=== PATIENT | female | born 1975 | race Caucasian/White ===

== ENCOUNTER → 2017-07-01 | Outpatient (CLI) | payer OTHER | LOC: FIMAGING 11:37 | PROVIDERS: ATTEND Obstetrics & Gynecology | DX: O09.522 Supervision of elderly multigravida, second trimester (principal); Z87.59 Personal history of other complications of pregnancy, childbirth and the puerperium; Z3A.20 20 weeks gestation of pregnancy ==

== ENCOUNTER 2017-11-06 06:00 | Inpatient (IN) | payer OTHER ==
[2017-11-09] MEDS ORDERED: OXYTOCIN/RINGERS LACTATE 1,000 ML IV PRN (06:47)
[2017-11-09] MEDS ORDERED: OLIVE OIL 118 ML BTL MISC PRN (06:47)
[2017-11-09] MEDS ORDERED: TERBUTALINE SULFATE 1 MG/ML VIAL IV PRN (06:47)
[2017-11-09] MEDS ORDERED: MISOPROSTOL 200 MCG TAB PR PRN (06:47)
[2017-11-09] MEDS ORDERED: LIDOCAINE 1% 300 MG/30 ML SDV SC PRN (06:47)
[2017-11-09] MEDS ORDERED: IBUPROFEN 600 MG TAB PO PRN (06:47)
[2017-11-09] MEDS ORDERED: AMPICILLIN SODIUM 2 GM in NS 100 ML IV ONE (06:47)
[2017-11-09] MEDS ORDERED: EPSOM SALT 454 GM TP PRN (06:47)
[2017-11-09 07:18] LABS: PLATELET COUNT 160 10^3/uL (150-400)
[2017-11-09] MEDS: LR 1,000 ML IV PRN ×2 (08:06→13:43)
[2017-11-09] MEDS ORDERED: OLIVE OIL 118 ML BTL ONE (08:17)
[2017-11-09] MEDS ORDERED: LIDOCAINE 1% 300 MG/30 ML SDV ONE (08:17)
[2017-11-09] MEDS ORDERED: MISOPROSTOL 200 MCG TAB ONE (08:18)
[2017-11-09] MEDS ORDERED: AMMONIA AROMATIC 1 EACH AMP IH ONE (08:18)
[2017-11-09] MEDS ORDERED: TERBUTALINE SULFATE 1 MG/ML VIAL ONE (08:18)
[2017-11-09] MEDS ORDERED: OXYTOCIN 10 UNIT/ML VIAL ONE (08:18)
--- NOTE | 2017-11-09 08:58 | PDGENHP ---
History and Physical History and Physical: CARE: [facility] HPI: Patient is a 42 yo G 4 P 2 at 39.4 weeks ega who presents to L&D with complaints of leaking clear fluid since 0330. She started having irregular contractions at 0430. Baby has been active. Denies vaginal bleeding. Continues to leak clear fluid. She was scheduled for IOL this am at 0600. EDC: 11/12/2017 which is based on LMP: 02/05/17 which is known and consistent with Ultrasound at 9 weeks. Her is complicated by: AMA h/o anxiety/depression Anemia GBS pos Review of Systems: Constitutional: Denies any fever, chills, or fatigue HEENT: denies any visual changes, difficulty swallowing, hearing loss Cardiovascular: Denies any chest pain, palpitations, leg swelling Respiratory: denies any cough, wheezing, or shortness of breathe GI: Denies any nausea, vomiting, diarrhea, constipation : denies any dysuria, urgency, frequency, vaginal bleeding Musculoskeletal: denies any muscle or bone pain Skin: denies any rashes Neuro: denies any headache, seizures, lightheadedness, dizziness, or loss of consciousness Psychiatric: denies any current depression, anxiety, or SI/HI thoughts HISTORY: Previous OB history: 2008 at 38 wks ega - IUGR, GDM; 2011 at 39 weeks ega Past medical history: anxiety/depression -not treated Past surgical history: wisdom teeth age 19 Medications: PNV, iron Allergies: NKDA LABS: Rh: A pos ABS: Neg Rubella: Immune HbsAg: NR HIV: NR VDRL: NR 1hr: 89 GC: Neg Chlamydia: Neg Pap: WNL 04/23 GBS: pos Genetic screening WNL BMI: (prepreg) 23 PHYSICAL EXAM: Constitutional: WN, A&Ox3 HEENT: normocephalic atraumatic, supple Heart: RRR, no murmur Chest: CTA-B Abdomen: Soft, nontender, gravid SVE: 3-4/60/-2 Extremities: sml edema, negative kathleen's sign Neuro: grossly normal Psych: normal affect assessment: Reassuring FHTs, baseline 120s +accels, no decels, moderate variability Contractions: toco q 5 Assessment: 1) 42 yo G 4 P 2 with IUP@ 39.5 weeks ega 2) SROM with early labor 3) GBS pos 4) Cat 1 FHR tracing 5) Plans unmedicated Plan: 1) Admit to L&D 2) Initiate GBS prophylaxis 3) Diet at tolerated 4) Intermittent monitoring per protocol 5) Expectant management for now, will consider pitocin augmentation if not in active labor by 1530 6) Anticipate
--- NOTE | 2017-11-09 11:18 | OBPROG ---
Labor Progress Note Assessment/Plan: Assessment: 42 y/o - IOL at 39.4 weeks ega Active labor SVE 7-8//-1 Category 2 EFM - recurrent mod variable decels Plan: Dr Torres notified of EFM FSE placed Will continue to monitor closely 11/09/17 19:25 Subjective/Intrapartum Course: 11/09/17 19:35 Patient very uncomfortable and vocal with contractions. Having some involuntary pushing. FHR deceleration audible with doptone during intermittent monitoring. Objective: 11/09/17 06:55 Patient ABO/Rh A POSITIVE 11/09/17 06:55 - SVE Dilation (cm): 7 Effacement (%): 75 Station: -1 - Contraction Pattern Assessment Current Contraction Pattern: Regular - Procedures Non-surgical Procedures: FSE CNM Assessment - Uterine Assessment Contraction Strength: Strong Uterine Resting Tone: Palpates Soft Contraction Frequency (minutes): 2-3 Contraction Duration (sec): 60 - Intermittent Auscultation Auscultation Method Used: Doppler (Deceleration to 80s audible with doppler - EFM placed) Oxytocin Orders Assessment - Pre-Induction/Augmentation Assessment Presentation: Vertex Gestational Age: 39 week(s) and 4 day(s) Gestational Age Determined By: Ultrasound, Last Menstral Period Estimated Weight: 2501-3400g Membrane Status: Ruptured Current Contraction Pattern: Regular ICD10 Worksheet Patient Problems: Problems Problem Status Onset Face presentation, delivered Acute (spontaneous vaginal delivery) Acute
[2017-11-09] MEDS: AMPICILLIN SODIUM 1 GM in NS 50 ML IV SCH ×3 (11:44→20:03)
[2017-11-09] MEDS ORDERED: PHENYLEPHRINE HCL 100 MCG/ML SYR ONE (13:19)
[2017-11-09] MEDS ORDERED: BUPIVACAINE 0.25% 30 ML SDV ONE (13:19)
[2017-11-09] MEDS ORDERED: fentaNYL 100 MCG/2 ML INJ ONE (13:21)
[2017-11-09] MEDS ORDERED: fentaNYL 200 MCG, BUPIVACAINE 0.5% 20 ML in NS 100 ML EP SCH (14:00)
[2017-11-09] MEDS ORDERED: PHENYLEPHRINE HCL 100 MCG/ML SYR IVP PRN (14:03)
[2017-11-09] MEDS ORDERED: ONDANSETRON 4 MG/2 ML VIAL IVP PRN (14:03)
--- NOTE | 2017-11-09 14:20 | PREANESOB ---
Obstetric Pre-Anesthesia Info - General Info Proposed Procedure: Labor and delivery. : 4 Para: 2 PRIYANK: 11/12/17 Gestational Age: 39 week(s) and 4 day(s) - Info Status: Full Term Monitors: External FHR Baseline (bpm): 120 FHR Pattern: Non-reassuring - Labor Status Cervical Dilation per last OB SVE: 8 Pitocin: Planned Labor Epidural: Proposed Anesthesia ROS: General anesthesia for nose surgery. Allergies/Adverse Reactions: Allergy/AdvReac Type Severity Reaction Status Date / Time No Allergies [NKDA] Allergy Verified 11/09/17 07:28 Visit Medications: Generic Name Dose Route Start Last Admin Trade Name Freq PRN Reason Stop Dose Admin Ampicillin Sodium 1 gm/ Sodium 50 mls @ 100 mls/hr 11/09/17 10:48 11/09/17 11 :44 Chloride IV 12/09/17 10:47 50 mls Q4H JANIE Administration Protocol Lactated Ringer's 1,000 mls @ 0 mls/hr 11/09/17 06:47 11/09/17 13:43 Lr IV 11/10/17 06:46 1,000 mls PRN PRN Administration SEE PROTOCOL CONDITIONS Protocol Per Protocol Oxytocin/Lactated Ringer's 1,000 mls @ 125 mls/hr 11/09/17 06:47 Pitocin 20 Units/Lr (Premix) IV PRN PRN Post bleeding Fentanyl 200 mcg/ Bupivacaine 100 mls @ 0 mls/hr 11/09/17 14:00 HCl 20 ml/ Sodium Chloride EP 11/19/17 13:59 CONT [facility] Protocol As Directed Ibuprofen 600 mg 11/09/17 06:47 Motrin PO ONCE PRN post , pain Lidocaine HCl 300 mg 11/09/17 06:47 Lidocaine Hcl 1% SC 05/08/18 06:46 ONCE PRN episiotomy Magnesium Sulfate 454 gm 11/09/17 06:47 Epsom Salt TP 05/08/18 06:46 Q1H PRN perineal discomfort Misoprostol 800 - 1,000 mcg 11/09/17 06:47 Cytotec LA ONCE PRN Vaginal Atony/Bleeding [place] Oil 118 ml 11/09/17 06:47 Sweet Oil MISC 05/08/18 06:46 ONCE PRN perineal massage Terbutaline Sulfate 0.25 mg 11/09/17 06:47 Brethine IV 05/08/18 06:46 ONCE PRN Tachysystole Discontinued Medications Generic Name Dose Route Start Last Admin Trade Name Sabrina PRN Reason Stop Dose Admin Ammonia (Aromatic Spirit) Confirm 11/09/17 08:18 Ammonia Aromatic Administered 11/09/17 08:19 Dose 2 each IH .STK-MED ONE Bupivacaine HCl Confirm 11/09/17 13:19 Sensorcaine 0.25% Sdv Administered 11/09/17 13:20 Dose 30 ml .ROUTE .STK-MED ONE Fentanyl Confirm 11/09/17 13:21 Sublimaze Administered 11/09/17 13:22 Dose 100 mcg .ROUTE .STK-MED ONE Ampicillin Sodium 2 gm/ Sodium 110 mls @ 220 mls/hr 11/09/17 06:47 11/09/17 08:05 Chloride IV 11/09/17 07:16 110 mls ONCE ONE Administration Protocol Lidocaine HCl Confirm 11/09/17 08:17 Lidocaine Hcl 1% Administered 11/09/17 08:18 Dose 300 mg .ROUTE .STK-MED ONE Misoprostol Confirm 11/09/17 08:18 Cytotec Administered 11/09/17 08:19 Dose 1,000 mcg .ROUTE .STK-MED ONE [place] Oil Confirm 11/09/17 08:17 Sweet Oil Administered 11/09/17 08:18 Dose 118 ml .ROUTE .STK-MED ONE Oxytocin Confirm 11/09/17 08:18 Pitocin Administered 11/09/17 08:19 Dose 40 unit .ROUTE .STK-MED ONE Phenylephrine HCl Confirm 11/09/17 13:19 Neosynephrine Administered 11/09/17 13:20 Dose 1,000 mcg .ROUTE .STK-MED ONE Terbutaline Sulfate Confirm 11/09/17 08:18 Brethine Administered 11/09/17 08:19 Dose 1 mg .ROUTE .STK-MED ONE - Anesthesia History Response to Local Anesthetics: Normal Anesthesia & Operative History: No Prior Problems Family Anesthesia History: Negative - Social History Substance Use/Abuse: Denies - Vital Signs Blood Pressure: 120/61 Heart Rate: 84 Height/Weight (Nursing): Height 170.18 cm Weight 75.296 kg - Focused Exam Neck exam: FROM Mallampati Score: Class 1 Pulmonary: no respiratory distress Cardiovascular: regular rate and rhythym Labs: 11/09/17 06:55 Patient ABO/Rh A POSITIVE 11/09/17 06:55 - Plan Anesthetic Plan: CSE Consent Signed and on Chart: Yes Patient/Guardian Understands and Agrees to Plan: Yes Urgent/Emergent Case: Anes eval completed preop but documented later for safe timely pt care
[2017-11-09] MEDS ORDERED: fentaNYL 2MCG/ML/BUP 0.1% RTU 100 ML EP SCH (14:30)
[2017-11-09] MEDS ORDERED: LR 500 ML IV SCH (14:30)
[2017-11-09] MEDS ORDERED: HYDROCODONE/APAP 5/325 TAB PO PRN (15:30)
[2017-11-09] MEDS ORDERED: HYDROCORTISONE 0.5% CREAM TP PRN (15:30)
[2017-11-09] MEDS ORDERED: SIMETHICONE 80 MG TAB CHEW PO PRN (15:30)
[2017-11-09] MEDS ORDERED: ACETAMINOPHEN 325 MG TAB PO PRN (15:30)
--- NOTE | 2017-11-09 15:35 | OBDEL ---
Info Type: Vaginal Presentation at Delivery: Face L&D Analgesia/Anesthesia Type: Epidural GBS+: Yes Antibiotic Used for + GBS: Ampicillin Intrapartum Medications: Generic Name Dose Route Start Last Admin Trade Name Freq PRN Reason Stop Dose Admin Ampicillin Sodium 1 gm/ Sodium 50 mls @ 100 mls/hr 11/09/17 10:48 11/09/17 11 :44 Chloride IV 12/09/17 10:47 50 mls Q4H JANIE Administration Protocol Lactated Ringer's 1,000 mls @ 0 mls/hr 11/09/17 06:47 11/09/17 13:43 Lr IV 11/10/17 06:46 1,000 mls PRN PRN Administration SEE PROTOCOL CONDITIONS Protocol Per Protocol Discontinued Medications Generic Name Dose Route Start Last Admin Trade Name Freq PRN Reason Stop Dose Admin Ampicillin Sodium 2 gm/ Sodium 110 mls @ 220 mls/hr 11/09/17 06:47 11/09/17 08:05 Chloride IV 11/09/17 07:16 110 mls ONCE ONE Administration Protocol - Infant Care Provider Research Physician/CHORUS MASTER: Joanna Perales Indications for Delivery: Spontaneous Labor, SROM Vaginal Delivery - Delivery Provider Delivery Physician/CNM: Maya Torres - Labor and Delivery Onset of Contractions Date: 11/09/17 Onset of Contractions Time: 04:00 Onset of Contractions Type: Spontaneous Rupture of Membranes Date: 11/09/17 Rupture of Membranes Time: 03:30 Rupture of Membranes Type: Spontaneous Amniotic Fluid Color: Clear Dilation Complete Date: 11/09/17 Dilation Complete Time: 14:50 Placenta Delivery Date: 11/09/17 Placenta Delivery Time: 15:15 Total Hours of Labor: 11 Laceration: Other (Specify) (none, intact perineum) Vaginal Sponge Count Correct: Yes Vaginal Needle Count Correct: Yes Vaginal Sweep Performed: No EBL: 150 Delivery Events: Nuchal Cord (tight x 2) Delivery Comment: face delivery with mentum anterior, good maternal efforts, nuchal cord x 2 - Medications Labor Augmentation/Induction Methods Used: None [place] Data PRIYANK: 11/12/17 Gestational Age: 39 week(s) and 4 day(s) ICD10 Worksheet Patient Problems: Problems Problem Status Onset Face presentation, delivered Acute (spontaneous vaginal delivery) Acute - ICD10 Problem Qualifiers (1) (spontaneous vaginal delivery) (2) Face presentation, delivered
[2017-11-09] MEDS: IBUPROFEN 600 MG TAB PO PRN (21:54)
[2017-11-10] MEDS: IBUPROFEN 600 MG TAB PO PRN ×3 (03:59→16:26)
[2017-11-10] MEDS: DOCUSATE SODIUM 100 MG CAP PO PRN (10:12)
--- NOTE | 2017-11-10 12:25 | OBGCSDC ---
General Delivery Information - General Info : 4 Para: 2 Abortions: 1 Type: Vaginal L&D Analgesia/Anesthesia Type: Epidural Admission Date: 11/09/17 Labs: Patient ABO/Rh A POSITIVE 11/09/17 06:55 Hct 35.8 % (38.0-47.0) L 11/09/17 06:55 - Hospital Course Intrapartum: 11/09/17 19:35 Patient very uncomfortable and vocal with contractions. Having some involuntary pushing. FHR deceleration audible with doptone during intermittent monitoring. Vaginal - Delivery Provider Delivery Physician/CNM: Maya Torres - Diagnosis Labor: Spontaneous Rupture of Membranes Type: Spontaneous Amniotic Fluid Color: Clear Laceration: Other (Specify) (none, intact perineum) Delivery Events: Nuchal Cord (tight x 2) - Procedures Non-surgical Procedures: FSE - Delivery Non-surgical Procedures: FSE [place] Data PRIYANK: 11/12/17 Gestational Age: 39 week(s) and 6 day(s) [place] Delivery Date: 11/09/17 Delivery Time: 15:12 Sex of : Male [place] Weight (gm): 3146 kg Score (1 Min): 8 Score (5 Min): 8 Discharge Information - Discharge Information Condition: Good Instruction/Follow Up: See Instruction Sheet, Four Weeks, Six Weeks
--- NOTE | 2017-11-10 12:25 | OBPP ---
Progress Note Assessment/Plan: Assessment: 42 yo now , PPD1 s/p with face presentation. complicated by AMA, h/o anxiety/depression, Anemia, GBS pos. - Routine cares - I do think its fine for her to dc home this afternoon after 24 hrs. - Not taking any narcotics, so no need for scripts. - Will need to see if baby is cleared re GBS and bruising/jaundice. - Fe supps for anemia, mood good this AM. - If leaving today, f/u for mood check 4 wks, PP 6 wks. Subjective/ Course: Olga is doing great this AM. Pain controlled, BF going well. Thinks she'd be interested in leaving after 24 hrs if possible. Baby doing well in terms of bruising. Objective: 11/09/17 06:55 Patient ABO/Rh A POSITIVE 11/09/17 06:55 Temp Pulse Resp BP Pulse Ox 36.9 C 70 12 110/68 11/09/17 21:30 11/09/17 21:30 11/09/17 21:30 11/09/17 21:30 Uterine Position/Fundal Height: At Umbilicus Uterine Tone: Firm
[2017-11-11] MEDS: IBUPROFEN 600 MG TAB PO PRN ×2 (01:40→08:48)
[2017-11-11] MEDS: DOCUSATE SODIUM 100 MG CAP PO PRN (08:48)
--- NOTE | 2017-11-11 10:08 | OBGCSDC ---
General Delivery Information - General Info : 4 Para: 2 Abortions: 1 Type: Vaginal L&D Analgesia/Anesthesia Type: Epidural Admission Date: 11/09/17 Labs: Patient ABO/Rh A POSITIVE 11/09/17 06:55 Hct 35.8 % (38.0-47.0) L 11/09/17 06:55 - Hospital Course Intrapartum: 11/09/17 19:35 Patient very uncomfortable and vocal with contractions. Having some involuntary pushing. FHR deceleration audible with doptone during intermittent monitoring. : 11/11/17 10:07 S) Pt doing well, reports min pain and bleeding. she is ambulating and voiding without difficulty. She is . She desires discharge home today. O) VSS, afebrile constitutional: WNWF, A&Ox3 HEENT: normocephalic, atraumatic, supple Heart: RRR, No murmur Chest: CTA-B Abdomen: Soft, nontender Uterus: Firm at U-2 Lochia: Minimal rubra Perineum: Intact, healing well Extremities: Trace edema, and negative Ramona's sign Neuro: Grossly normal A) 42-year-old S/P PPD#2 P) Discharge home today Continue Pelvic rest x6wks Discussed danger signs (infection, preeclampsia, depression, heavy bleeding, etc ) RTO in 2/4/6 weeks 11/11/17 10:08 Vaginal - Delivery Provider Delivery Physician/CNM: Maya Torres - Diagnosis Labor: Spontaneous Rupture of Membranes Type: Spontaneous Amniotic Fluid Color: Clear Laceration: Other (Specify) (none, intact perineum) Delivery Events: Nuchal Cord (tight x 2) - Procedures Non-surgical Procedures: FSE - Delivery Non-surgical Procedures: FSE [place] Data PRIYANK: 11/12/17 Gestational Age: 39 week(s) and 6 day(s) [place] Delivery Date: 11/09/17 Delivery Time: 15:12 Sex of Infant: Male [place] Weight (gm): 3146 kg Score (1 Min): 8 Score (5 Min): 8 Discharge Information - Discharge Information Condition: Good Instruction/Follow Up: See Instruction Sheet, Four Weeks, Six Weeks
[2017-11-11 10:17] VITALS: BP 107/64
== END 2017-11-11 12:45 | disposition home or self-care (01) | DRG 775 ==
LOC: FLD 11-09 06:07 → FOB 11-09 19:07
PROVIDERS: ADMIT Obstetrics & Gynecology; ATTEND Obstetrics & Gynecology
PROC: 10E0XZZ Delivery of Products of Conception, External Approach (ICD-10-PCS; principal; 2017-11-09)
DX: O99.824 Streptococcus B carrier state complicating childbirth (principal); Z37.0 Single live birth; Z3A.39 39 weeks gestation of pregnancy; O69.81X0 Labor and delivery complicated by cord around neck, without compression, not applicable or unspecified; O76 Abnormality in fetal heart rate and rhythm complicating labor and delivery
CPT/HCPCS: J0290; J2370; J2590; J3010; J3105